=== PATIENT | female | born 1935 | race Caucasian/White ===

== ENCOUNTER 2017-05-09 21:56 | Emergency (ER) | payer MEDICARE ==
[~2017-05-09] VITALS: Ht 165.1 cm; Wt 70.0 kg
[2017-05-09 22:16] VITALS: BP 138/80; PULSE 56; RESP 16; TEMP 98.3; O2SAT 99
--- NOTE | 2017-05-09 22:28 | PD ---
HPI Chief Complaint: Fall Time Seen by Provider: 22:14 Travel History International Travel<30 days: No Contact w/Intl Traveler<30days: No Traveled to known affect area: No History of Present Illness HPI 81-year-old female that presents to the ED for evaluation of fall. Patient had a fall apparently at the nursing facility where she resides. Patient had a fracture to her right hip which is what brought her in the [facility]. She does take Lovenox for DVT prophylaxis. Patient has a chronic history of dementia and is a poor historian herself. She apparently has been complaining of left hip pain. She had a fall from bed. Fall was not witnessed by any of the staff. She does appear to have bruising on the right side of the body which per report from [facility] any back is all from the previous fracture. Unclear patient hit her head. Unclear patient had a syncopal episode. Not much history given again secondary to patient's dementia. She herself cannot really tell me if she has pain or give me a level. PFSH Past Medical History Hx Anticoagulant Therapy: Yes ?: Not Social History Alcohol Use: No Tobacco Use: No Substance Use: No Review of Systems ROS Limitations: Poor Historian Except as stated in HPI: all other systems reviewed are Neg Physical Exam Exam Limitations: Poor Historian Narrative GENERAL: SKIN: Warm and dry. HEAD: Atraumatic. Normocephalic. EYES: Pupils equal and round. No scleral icterus. No injection or drainage. ENT: No nasal bleeding or discharge. Mucous membranes pink and moist. NECK: Trachea midline. No JVD. CARDIOVASCULAR: Regular rate and rhythm. RESPIRATORY: No accessory muscle use. Clear to auscultation. Breath sounds equal bilaterally. GASTROINTESTINAL: Abdomen soft, non-tender, slightly distended. Hepatic and splenic margins not palpable. MUSCULOSKELETAL: Extremities without clubbing, cyanosis, or edema. No obvious deformities. Patient has pain with movement of the left hip. No obvious deformity noted for over. Pupils pulses in the lower extremities. Patient does have bruising and hematoma to the right hip as well as to the right elbow which appear to be old from a previous injury. Patient appears to have no sign of bruising or deformity to the head but she does appear to have blisters or abrasions to the lips of unclear chronicity. No obvious cervical, thoracic, lumbar spine tenderness to palpation but hard to assess secondary to patient's large body habitus. NEUROLOGICAL: Awake and alert and oriented 1. No obvious cranial nerve deficits. Motor grossly within normal limits. Five out of 5 muscle strength in the arms and legs. Normal speech. PSYCHIATRIC: Demented mood and affect; insight and judgment minimal Data Data Last Documented VS Vital Signs Date Time Temp Pulse Resp B/P (MAP) Pulse Ox O2 Delivery O2 Flow Rate FiO2 05/09/17 22:16 98.3 56 16 138/80 (99) 99 Orders Orders Electrocardiogram (05/09/17 22:14) Complete Blood Count With Diff (05/09/17 22:14) Basic Metabolic Panel (Bmp) (05/09/17 22:14) Ckmb (Isoenzyme) Profile (05/09/17 22:14) Troponin I (05/09/17 22:14) Prothrombin Time / Inr (Pt) (05/09/17 22:14) Act Partial Throm Time (Ptt) (05/09/17 22:14) Magnesium (Mg) (05/09/17 22:14) Chest, Single Ap (05/09/17 22:14) Ct Brain W/O Iv Contrast(Rout) (05/09/17 22:14) Ct Abd/Pel W Iv Contrast(Rout) (05/09/17 22:14) Iv Access Insert/Monitor (05/09/17 22:14) Type And Screen (05/09/17 22:14) Elbow, Complete (4 Vws) (05/09/17 22:14) Hip, Uni(Ap&Lat) W Ap Pelvis (05/09/17 22:14) Femur (Ap & Lat/2vws) (05/09/17 ) MDM Medical Decision Making Medical Screen Exam Complete: Yes Emergency Medical Condition: Yes Medical Record Reviewed: Yes Differential Diagnosis Fall versus head injury versus bleed versus fracture versus syncope Narrative Course 81-year-old female that presents to the ED for evaluation of fall from bed. Patient was properly examined and was found to have signs and symptoms concerning for possible fractures. Patient does take Lovenox prophylactically for DVT. She already had a right hip fracture. Unclear as to what happened to the patient has nobody witnessed the fall. Because of the history do recommend imaging. Patient does have somewhat of a distended abdomen but this appears to be more chronic we will do CT of the abdomen is patient does take blood thinners. Patient will have imaging of her head as well as x-rays. Labs were ordered. Case will be signed out to my attending pending disposition. Manish Wilson May 09, 2017 22:28
--- NOTE | 2017-05-09 22:41 | PD ---
Physical Exam Narrative General: The patient is a well-developed well-nourished female in no acute distress. Head and Neck exam: Head is normocephalic atraumatic. Eyes: EOMI, pupils are equal round and reactive to light. Nose: Midline septum with pink mucous membranes Mouth: Dentition unremarkable. Moist mucus membranes. Posterior oropharynx is not erythematous. No tonsillar hypertrophy. Uvula midline. Airway patent. Neck: No palpable lymphadenopathy. No nuchal rigidity. No thyromegaly. Cardiovascular: Regular rate and rhythm without murmurs, gallops, or rubs. No pulse deficit to the extremities on simultaneous auscultation and palpation of her radial artery. Lungs: Clear to auscultation bilaterally. No wheezes, rhonchi, or rales. Abdomen: Soft, without tenderness to palpation in all 4 quadrants of the abdomen. No guarding, rebound, or rigidity. Normal bowel sounds are audible. No tenderness on palpation of McBurney's point. The patient denies having any pain on palpation of her abdomen, however she does have scattered small areas of bruising presumably related to Lovenox administration subcutaneous. Extremities: No clubbing, cyanosis, or edema. 2+ pulses in all 4 extremities. The patient has numerous areas of bruising on her extremities in various stages of healing. The patient reportedly is on aspirin and Lovenox. The patient on examination reports having right hip pain although according to ambulance services she rolled out of bed and landed on her left hip. The patient is postop related to right hip repair. The patient has a postoperative incision that appears to be healing well with surrounding bruising and a hematoma that is formed. The patient has a hematoma/cystic area noted along the right anterior medial thigh that reportedly was present prior to her fall. Back: No costovertebral angle tenderness to palpation. Neurologic Exam: Grossly nonfocal. The patient has a history of dementia. She is oriented to person, however not place, time, or situation. Skin Exam: No rash noted. Skin is warm and dry. Data Data Last Documented VS Vital Signs Date Time Temp Pulse Resp B/P (MAP) Pulse Ox O2 Delivery O2 Flow Rate FiO2 05/09/17 22:16 98.3 56 16 138/80 (99) 99 Orders Orders Electrocardiogram (05/09/17 22:14) Complete Blood Count With Diff (05/09/17 22:14) Basic Metabolic Panel (Bmp) (05/09/17 22:14) Ckmb (Isoenzyme) Profile (05/09/17 22:14) Troponin I (05/09/17 22:14) Prothrombin Time / Inr (Pt) (05/09/17 22:14) Act Partial Throm Time (Ptt) (05/09/17 22:14) Magnesium (Mg) (05/09/17 22:14) Chest, Single Ap (05/09/17 22:14) Ct Brain W/O Iv Contrast(Rout) (05/09/17 22:14) Ct Abd/Pel W Iv Contrast(Rout) (05/09/17 22:14) Iv Access Insert/Monitor (05/09/17 22:14) Type And Screen (05/09/17 22:14) Elbow, Complete (4 Vws) (05/09/17 22:14) Hip, Uni(Ap&Lat) W Ap Pelvis (05/09/17 22:14) Femur (Ap & Lat/2vws) (05/09/17 ) Ct Hip W/O Contrast (05/09/17 ) CKMB (05/09/17 23:05) CKMB% (05/09/17 23:05) Sodium Chlor 0.9% 1000 Ml Inj (Ns 1000 M (05/10/17 01:00) Morphine Inj (Morphine Inj) (05/10/17 01:00) Ondansetron Inj (Zofran Inj) (05/10/17 01:00) Cath For Specimen (05/10/17 00:46) Iodixanol 320 Inj (Rad Ct) (Visipaque 32 (05/10/17 01:00) Urinalysis - C+S If Indicated (05/10/17 01:08) Red Blood Cells (Rbc) (05/09/17 23:05) Urine Culture (05/10/17 01:15) Potassium Chloride (Kcl) (05/10/17 01:45) Ceftriaxone Inj (Rocephin Inj) (05/10/17 01:45) Radiology Film Requests (05/10/17 ) Labs Laboratory Tests Test 05/09/17 23:05 05/10/17 01:15 White Blood Count 12.6 TH/MM3 Red Blood Count 2.78 MIL/MM3 Hemoglobin 9.2 GM/DL Hematocrit 27.8 % Mean Corpuscular Volume 100.3 FL Mean Corpuscular Hemoglobin 33.0 PG Mean Corpuscular Hemoglobin Concent 33.0 % Red Cell Distribution Width 14.9 % Platelet Count 213 TH/MM3 Mean Platelet Volume 8.5 FL Neutrophils (%) (Auto) 79.6 % Lymphocytes (%) (Auto) 9.8 % Monocytes (%) (Auto) 7.4 % Eosinophils (%) (Auto) 2.4 % Basophils (%) (Auto) 0.8 % Neutrophils # (Auto) 10.1 TH/MM3 Lymphocytes # (Auto) 1.2 TH/MM3 Monocytes # (Auto) 0.9 TH/MM3 Eosinophils # (Auto) 0.3 TH/MM3 Basophils # (Auto) 0.1 TH/MM3 CBC Comment AUTO DIFF Differential Total Cells Counted 100 Neutrophils % (Manual) 74 % Band Neutrophils % 3 % Lymphocytes % 14 % Monocytes % 4 % Eosinophils % 2 % Neutrophils # (Manual) 10.1 TH/MM3 Myelocytes 1 % Promyelocytes 2 % Differential Comment FINAL DIFF MANUAL Platelet Estimate NORMAL Platelet Morphology Comment NORMAL Ovalocytes 1+ Acanthocytes OCC Prothrombin Time 10.6 SEC Prothromb Time International Ratio 1.0 RATIO Activated Partial Thromboplast Time 24.9 SEC Blood Urea Nitrogen 30 MG/DL Creatinine 1.47 MG/DL Random Glucose 109 MG/DL Calcium Level 8.6 MG/DL Magnesium Level 1.9 MG/DL Sodium Level 143 MEQ/L Potassium Level 3.4 MEQ/L Chloride Level 107 MEQ/L Carbon Dioxide Level 23.3 MEQ/L Anion Gap 13 MEQ/L Estimat Glomerular Filtration Rate 34 ML/MIN Total Creatine Kinase 153 U/L Creatine Kinase MB 1.4 NG/ML Troponin I LESS THAN 0.02 NG/ML Urine Color YELLOW Urine Turbidity HAZY Urine pH 5.5 Urine Specific [place] 1.014 Urine Protein NEG mg/dL Urine Glucose (UA) NEG mg/dL Urine Ketones NEG mg/dL Urine Occult Blood SMALL Urine Nitrite NEG Urine Bilirubin NEG Urine Urobilinogen LESS THAN 2.0 MG/DL Urine Leukocyte Esterase MOD Urine RBC 3 /hpf Urine WBC 4 /hpf Urine Squamous Epithelial Cells 4 /hpf Urine Bacteria RARE /hpf Urine Hyaline Casts 3 /lpf Urine Mucus FEW /lpf Microscopic Urinalysis Comment CATH-CULTURE IND MDM Medical Record Reviewed: Yes Supervised Visit with SARAH: Yes Interpretation(s) Last Impressions Hip and Pelvis X-Ray 05/09/172213 Signed Impressions: Service Date/Time: Tuesday, May 09, 2017 22:36 - CONCLUSION: Possible nondisplaced fracture of the greater trochanter. Otherwise intact right hip. Normal arthroplasty. Micheal Stubbs MD Elbow X-Ray 05/09/172213 Signed Impressions: Service Date/Time: Tuesday, May 09, 2017 22:30 - CONCLUSION: Intact right elbow. Micheal Stubbs MD Chest X-Ray 05/09/172213 Signed Impressions: Service Date/Time: Tuesday, May 09, 2017 22:46 - CONCLUSION: No evidence of acute cardiopulmonary disease. Micheal Stubbs MD Femur X-Ray 05/09/17 0000 Signed Impressions: Service Date/Time: Tuesday, May 09, 2017 22:39 - CONCLUSION: Normal radiographic appearance of the left femur. Micheal Stubbs MD Differential Diagnosis Hip dislocation, versus fracture, versus pelvis fracture, versus contusion, versus hematoma Narrative Course I, Dr. Webster, have reviewed the advance practice practitioner's documentation and am in agreement, met with the patient face to face, made the diagnosis, and the medical decision making was done by me. The patient was initially evaluated by Jacky, the physician assistant accounting manager. Please see their complete history and physical. *My assessment and Findings: The patient presents with a reported history of falling out of bed prior to arrival. The patient is currently in a rehabilitation facility status post right hip ORIF. The patient reportedly rolled out of bed and landed on her left side and was complaining of left hip pain. The patient on examination by me is awake and alert. She is oriented to person. She reports that she has right hip pain. During the course of the patients emergency department visit, the patients history, examination, and differential diagnosis were reviewed with the patient. The patient was placed on a cardiac rehab nurse with oximetry and frequent blood pressure monitoring. The patient had IV access obtained and blood work sent for analysis. The patient had an ECG done that shows what appears to be atrial flutter with a heart rate of 56, QRS duration is 95 ms, QTC [address] segment elevation. The patient was initially provided morphine 2 mg IV for pain, Zofran 4 mg IV for nausea. The patient was noted on urinalysis to have evidence of a urinary tract infection and was given Rocephin 1 g IV. The patient had mild hypokalemia and was given potassium 20 mg by mouth 1. The patients laboratory studies were reviewed and remarkable for a CBC that is 12.6, hemoglobin 9.2, platelets 213 with 74 neutrophils. Basic metabolic profile is remarkable for potassium of 3.4, BUN 30, creatinine 1.47, glucose 109 , magnesium 1.9, CPK 153, troponin I less than 0.02. PT 10.6, PTT 24.9. Urinalysis shows small occult blood, moderate leukocyte esterase, 3 RBCs, 4 WBCs , 4 squamous epithelial cells, rare bacteria, culture indicated. Radiology studies were reviewed and remarkable for a chest x-ray that shows no evidence of acute cardiopulmonary disease, right hip and pelvis x-ray reveal a possible nondisplaced fracture of the greater trochanter, otherwise intact right hip, normal arthroplasty. Left femur x-ray shows no acute abnormality. Right elbow x-ray shows an intact right elbow. CT scan of the head shows no acute abnormality. CT scan of the abdomen and pelvis shows bilateral small pleural effusions, no acute visceral injury. Suspected right hip fracture. CT scan of the right hip reveals a mildly comminuted mildly displaced acute appearing fracture of the right greater trochanter. There is a nondisplaced intertrochanteric component along the anterior margin of the proximal stem of the femoral component of the right hip arthroplasty. No evidence of hardware failure or loosening. The patient has an extra-articular soft tissue hematoma, old healed fractures of the right superior and inferior pubic rami. No acute pelvic fractures. A call was placed out to , the orthopedic physician, regarding this patient's case and the image findings noted on CT. I was told by the [facility] that he is the orthopedic physician that did the patient's right hip surgery on May 02. Dr. Bradshaw, the covering orthopedic physician called me back, and I spoke to him at 2:42 AM regarding this patient's case. We discussed the patient's current findings including her CT scan of the right hip findings. He reports that the patient may require admission for this. He is concerned that the fracture may affect the stability of the hardware that was recently placed. He plans to call Dr. Villalba to identify whether he would accept the patient in transfer to that facility, or whether the patient should be admitted to this facility. He returned the phone call back again at approximately 3:25 AM. He reports that the patient is accepted for transfer, however he wants us to make sure that the family agrees with the transfer to their facility. We will call the patient's family to notify them and obtain a consent. The CD of the images will also be made of the images of the patient has obtained at this facility for the orthopedic doctor to review at that facility. Additionally, gave me the nursing roofing supervisor's phone number for a report at [facility] at [phone] (Margie). I spoke to Margie who reported that the orthopedic physician is unable to provide admission orders in from home, therefore this would have to be an ER to ER transfer. I then spoke to the transfer center at [facility]. They transferred me to the emergency department physician, , agreed to the transfer of the patient from ER to ER. The patient's family was able to be contacted at 4:45 AM. I did speak to Sarabjit Lino, the patient's healthcare surrogate. He was aware of the patient's recent surgery. He agreed with the patient being transferred over to [facility] for continued care at their facility under the care of the surgeon that previously did her surgery on May 02. The patient will be transferred by ambulance services to [facility]. Diagnosis Primary Impression: Greater trochanter fracture Qualified Codes: S72.111A - Displaced fracture of greater trochanter of right femur, initial encounter for closed fracture Additional Impressions: Intertrochanteric fracture of right femur Qualified Codes: S72.144A - Nondisplaced intertrochanteric fracture of right femur, initial encounter for closed fracture Urinary tract infection Qualified Codes: N39.0 - Urinary tract infection, site not specified; R31.9 - Hematuria, unspecified Leukocytosis Qualified Codes: D72.829 - Elevated white blood cell count, unspecified Med/Other Pt SpecificInfo: Prescription(s) given Scripts Sulfamethoxazole-Trimethoprim (Bactrim DS) 800-160 Mg Tab 1 TAB PO BID for Infection, #14 TAB 0 Refills Prov: Jada Webster MD 05/10/17 Disposition: 70 TRANSFER TO OTHER FACILITY Condition: Stable Jada Webster MD May 09, 2017 22:41
--- NOTE | 2017-05-09 23:07 | RADRPT ---
EXAM DATE/TIME: 05/09/2017 22:30 [facility] COMPARISON: No previous studies available for comparison. INDICATIONS : Fall today. MEDICAL HISTORY : Patient was nonverbal. SURGICAL HISTORY : Patient was nonverbal. ENCOUNTER: Initial ACUITY: 1 day PAIN SCORE: 7/10 LOCATION: Right elbow. FINDINGS: Multiple view examination of the right elbow demonstrates no soft tissue swelling, joint effusion, or fracture. The osseous structures are in normal alignment. Bony mineralization is normal. CONCLUSION: Intact right elbow. Micheal Stubbs MD on May 09, 2017 at 23:06 Board Certified Radiologist. This report was verified electronically.
--- NOTE | 2017-05-09 23:08 | RADRPT ---
EXAM DATE/TIME: 05/09/2017 22:39 [facility] COMPARISON: No previous studies available for comparison. INDICATIONS : Pain. MEDICAL HISTORY : Patient non verbal. SURGICAL HISTORY : Patient non verbal. ENCOUNTER: Initial ACUITY: 1 day PAIN SCORE: Non-responsive. LOCATION: Left Femur. FINDINGS: Two view examination of the left femur demonstrates no evidence of fracture or dislocation. Bony min eralization is normal. The soft tissue structures are intact. CONCLUSION: Normal radiographic appearance of the left femur. Micheal Stubbs MD on May 09, 2017 at 23:06 Board Certified Radiologist. This report was verified electronically.
--- NOTE | 2017-05-09 23:17 | RADRPT ---
EXAM DATE/TIME: 05/09/2017 22:46 [facility] COMPARISON: No previous studies available for comparison. INDICATIONS : Trauma. MEDICAL HISTORY : Patient non verbal. SURGICAL HISTORY : Patient non verbal. ENCOUNTER: Initial ACUITY: 1 day PAIN SCORE: Non-responsive. LOCATION: Bilateral Chest. FINDINGS: A single view of the chest demonstrates the lungs to be symmetrically aerated without evidence of mas s, infiltrate or effusion. The cardiomediastinal contours are unremarkable. Osseous structures are intact. CONCLUSION: No evidence of acute cardiopulmonary disease. Micheal Stubbs MD on May 09, 2017 at 23:15 Board Certified Radiologist. This report was verified electronically.
--- NOTE | 2017-05-09 23:19 | RADRPT ---
EXAM DATE/TIME: 05/09/2017 22:36 [facility] COMPARISON: No previous studies available for comparison. INDICATIONS : Fall today. MEDICAL HISTORY : Nonverbal. SURGICAL HISTORY : Nonverbal. ENCOUNTER: Initial ACUITY: 1 day PAIN SCORE: 7/10 LOCATION: Right hip. FINDINGS: Patient has a right bipolar hip arthroplasty. The arthroplasty is intact but there is some patchy jina ency in the adjacent greater trochanter of the proximal right femur. No evidence of hardware loosenin g. The right hemipelvis is intact. CONCLUSION: Possible nondisplaced fracture of the greater trochanter. Otherwise intact right hip. Normal arthropl asty. Micheal Stubbs MD on May 09, 2017 at 23:16 Board Certified Radiologist. This report was verified electronically.
[2017-05-09 23:37] LABS: AUTOMATED NEUTROPHIL # 10.1 TH/MM3 (1.8-7.7); BASOPHIL # 0.1 TH/MM3 (0-0.2); BASOPHIL % 0.8 % (0.0-2.0); EOSINOPHIL # 0.3 TH/MM3 (0-0.4); EOSINOPHIL % 2.4 % (0.0-4.0); HEMATOCRIT 27.8 % (35.0-46.0); HEMOGLOBIN 9.2 GM/DL (11.6-15.3); LYMPH % 9.8 % (9.0-44.0); LYMPHOCYTE # 1.2 TH/MM3 (1.0-4.8); MEAN CELL VOLUME 100.3 FL (80.0-100.0); MEAN PLATELET VOLUME 8.5 FL (7.0-11.0); MONO % 7.4 % (0.0-8.0); MONOCYTE # 0.9 TH/MM3 (0-0.9); NEUT % 79.6 % (16.0-70.0); PLATELET COUNT 213 TH/MM3 (150-450); RED BLOOD COUNT 2.78 MIL/MM3 (4.00-5.30); RED CELL DISTRIBUTION WIDTH 14.9 % (11.6-17.2); WHITE BLOOD COUNT 12.6 TH/MM3 (4.0-11.0)
[2017-05-09 23:48] LABS: PROTHROMBIN TIME - PATIENT 10.6 SEC (9.8-11.6)
[2017-05-09 23:51] LABS: BICARBONATE 23.3 MEQ/L (21.0-32.0); BLOOD UREA NITROGEN 30 MG/DL (7-18); CALCIUM 8.6 MG/DL (8.5-10.1); CHLORIDE 107 MEQ/L (98-107); CREATININE 1.47 MG/DL (0.50-1.00); GLOMERULAR FILTRATION RATE 34 ML/MIN (>89); GLUCOSE,RANDOM 109 MG/DL (74-106); MAGNESIUM 1.9 MG/DL (1.5-2.5); SODIUM (NA) 143 MEQ/L (136-145)
[2017-05-09 23:56] LABS: TROPONIN I LESS THAN 0.02 NG/ML (0.02-0.05)
--- NOTE | 2017-05-10 00:59 | RADRPT ---
EXAM DATE/TIME: 05/10/2017 00:45 [facility] COMPARISON: No previous studies available for comparison. INDICATIONS : Trauma, fall. RADIATION DOSE: 61.09 CTDIvol (mGy) MEDICAL HISTORY : None SURGICAL HISTORY : None. ENCOUNTER: Initial ACUITY: 1 day PAIN SCALE: Non-responsive LOCATION: cranial TECHNIQUE: Multiple contiguous axial images were obtained of the head. Using automated exposure control and adj ustment of the mA and/or kV according to patient size, radiation dose was kept as low as reasonably a chievable to obtain optimal diagnostic quality images. DICOM format image data is available electro nically for review and comparison. FINDINGS: CEREBRUM: The ventricles are normal for age. No evidence of midline shift, mass lesion, hemorrhage or acute in farction. No extra-axial fluid collections are seen. POSTERIOR FOSSA: The cerebellum and brainstem are intact. The 4th ventricle is midline. The cerebellopontine angle i s unremarkable. EXTRACRANIAL: The visualized portion of the orbits is intact. SKULL: The calvaria is intact. No evidence of skull fracture. CONCLUSION: Negative noncontrast head CT. Micheal Stubbs MD on May 10, 2017 at 0:57 Board Certified Radiologist. This report was verified electronically.
[2017-05-10] MEDS ORDERED: ONDANSETRON HCL 4 MG/2 ML VIAL IV PUSH ONE (01:00)
[2017-05-10] MEDS ORDERED: SODIUM CHLOR 0.9% 1000 ML INJ 1,000 ML IV SCH (01:00)
[2017-05-10] MEDS ORDERED: IODIXANOL 320 MG/ML 10 ML VIAL (for Rad CT) IVCONTRAST ONE (01:00)
[2017-05-10] MEDS ORDERED: MORPHINE SULFATE 2 MG/ML INJ IV PUSH ONE (01:00)
--- NOTE | 2017-05-10 01:12 | RADRPT ---
EXAM DATE/TIME: 05/10/2017 00:48 [facility] COMPARISON: No previous studies available for comparison. INDICATIONS : Trauma, fall. IV CONTRAST: 75 cc Visipaque (iodixanol) IV ORAL CONTRAST: No oral contrast ingested. RADIATION DOSE: 14.77 CTDIvol (mGy) MEDICAL HISTORY : None SURGICAL HISTORY : None. ENCOUNTER: Initial ACUITY: 1 day PAIN SCALE: Non-responsive LOCATION: Bilateral abdomen TECHNIQUE: Volumetric scanning of the abdomen and pelvis was performed. Using automated exposure control and ad justment of the mA and/or kV according to patient size, radiation dose was kept as low as reasonably achievable to obtain optimal diagnostic quality images. DICOM format image data is available electro nically for review and comparison. FINDINGS: LOWER LUNGS: Small bilateral pleural effusions. LIVER: Homogeneous density without lesion. There is no dilation of the biliary tree. No calcified gallston es. SPLEEN: Normal size without lesion. PANCREAS: Within normal limits. KIDNEYS: Normal in size and shape. There is no mass, stone or hydronephrosis. ADRENAL GLANDS: Within normal limits. VASCULAR: There is no aortic aneurysm. BOWEL/MESENTERY: The stomach, small bowel, and colon demonstrate no acute abnormality. There is no free intraperitone al air or fluid. ABDOMINAL WALL: Within normal limits. RETROPERITONEUM: There is no lymphadenopathy. BLADDER: Considerably distended at the time of imaging. A few bubbles of anti--dependent gas present as well, presumably attempted catheter placement. Please correlate clinically. REPRODUCTIVE: Within normal limits. INGUINAL: There is no lymphadenopathy or hernia. MUSCULOSKELETAL: Suspected fracture the right greater trochanter and a CT of the right hip is pending. Otherwise visua lized osseous structures are intact. There is a circumscribed mass measuring 3.2 x 4.7 x 4.6 cm in si ze just beneath the skin of the right inguinal region, nonspecific but most likely epidermal inclusio n cyst. Please correlate clinically. CONCLUSION: 1. No visceral organ injury or other acute abnormality within the abdomen or pelvis. 2. Small, bilateral pleural effusions seen of the visualized lung bases. 3. Distended urinary bladder. 4. Subcutaneous mass of the right inguinal region, probably a benign epidermal inclusion cyst. 5. Suspected right greater trochanteric fracture and a right hip CT is pending. Other visualized osse ous structures are intact. Micheal Stubbs MD on May 10, 2017 at 1:07 Board Certified Radiologist. This report was verified electronically.
--- NOTE | 2017-05-10 01:19 | RADRPT ---
EXAM DATE/TIME: 05/10/2017 00:48 [place] COMPARISON: No previous studies available for comparison. INDICATIONS : Trauma, fall. Evaluate for fracture. RADIATION DOSE: ; Reconstructed from previous dataset, no dose MEDICAL HISTORY : None SURGICAL HISTORY : None. ENCOUNTER: Initial ACUITY: 1 day PAIN SCALE: Non-responsive LOCATION: Right pelvis TECHNIQUE: Volumetric scanning of the hip was performed. Using automated exposure control and adjustment of the mA and/or kV according to patient size, radiation dose was kept as low as reasonably achievable to o btain optimal diagnostic quality images. DICOM format image data is available electronically for rev iew and comparison. FINDINGS: Multiple small, mildly displaced fractures are seen posteriorly of the right greater trochanter. Ther e is associated adjacent soft tissue hematoma. I don't see a definite joint effusion. The patient has a right bipolar hip arthroplasty. There is a focal intertrochanteric component of fracture involving the anterior cortex along the anterior margin of the upper stem of the femoral component, for exampl e series 7 image 40 and series 800 image 19. This component of the fracture is nondisplaced. The hard slater is intact and normally aligned. No evidence of loosening. There are old, healed fractures of the right superior and inferior pubic rami. 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 CONCLUSION: 1. Mildly comminuted, mildly displaced acute appearing fracture of the right greater trochanter. Ther e is a nondisplaced intertrochanteric component along the anterior margin of the proximal stem of the femoral component of the right hip arthroplasty. No evidence of hardware failure or loosening. 2. Extra-articular soft tissue hematoma posterolateral to the right hip. 3. No subluxation. 4. Old, healed fractures of the right superior and inferior pubic rami. No acute pelvic fracture is d emonstrated. Micheal Stubbs MD on May 10, 2017 at 1:12 Board Certified Radiologist. This report was verified electronically.
[2017-05-10 01:35] LABS: BACTERIA, URINE RARE /hpf; BILIRUBIN, URINE NEG (NEG); BLOOD, URINE SMALL (NEG); GLUCOSE,URINE NEG (NEG); HYALINE CAST, URINE 3 /lpf (RARE); KETONE, URINE NEG (NEG); MUCUS URINE FEW /lpf (OCC); NITRITE,URINE NEG (NEG); PH, URINE 5.5 (5.0-8.5); SQUAMOUS EPITHELIAL CELL URINE 4 /hpf (0-5); URINE COLOR YELLOW (YELLW/STRAW); URINE LEUKOCYTE ESTERASE MOD (NEG)
[2017-05-10] MEDS ORDERED: cefTRIAXone INJ 1,000 MG in SODIUM CHLORIDE 0.9% INJ 100 ML IV ONE (01:45)
[2017-05-10] MEDS ORDERED: BACT800T5 PO (01:45)
[2017-05-10] MEDS ORDERED: POTASSIUM CHLORIDE 20 MEQ CONTROLLED RELEASE TAB PO ONE (01:45)
[2017-05-10 02:15] LABS: BANDS 3 % (0-6); LYMPHOCYTES 14 % (9-44); MONOCYTES 4 % (0-8); MYELOCYTES 1 % (0-0); NEUTROPHIL # MANUAL DIFF 10.1 TH/MM3 (1.8-7.7); POLYS (SEG NEUTROPHILS) 74 % (16-70); PROMYELOCYTES 2 % (0-0)
[2017-05-10 02:16] LABS: OVALOCYTES 1+ (NORMAL)
[2017-05-10 02:17] LABS: ACANTHOCYTES OCC (NORMAL)
--- NOTE | 2017-05-10 13:04 | EKG ---
Date Performed: 05/09/2017 Time Performed: 23:26:17 PTAGE: 81 years EKG: ATRIAL FLUTTER WITH SLOW VENTRICULAR RESPONSE LOW QRS VOLTAGE IN PRECORDIAL LEADS ABNORMAL RHYTHM ECG NO PREVIOUS TRACING DOCTOR: Sammy Alas Interpretating Date/Time 05/10/2017 13:02:30
== END 2017-05-10 06:35 | disposition short-term general hospital (02) ==
LOC: NEPE 21:56 → EDBD 21:56 → NEPE 05-10 06:35
DX: S72.111A Displaced fracture of greater trochanter of right femur, initial encounter for closed fracture (principal); S72.144A Nondisplaced intertrochanteric fracture of right femur, initial encounter for closed fracture; M97.01XA Periprosthetic fracture around internal prosthetic right hip joint, initial encounter; N39.0 Urinary tract infection, site not specified; R31.9 Hematuria, unspecified; I48.92 Unspecified atrial flutter; W06.XXXA Fall from bed, initial encounter; Y92.129 Unspecified place in nursing home as the place of occurrence of the external cause
CPT/HCPCS: 70450; 71010; 73080; 73502; 73552; 73700; 74177; 80048; 81001; 82550; 82552; 83735; 84484; 85007; 85027; 85610; 85730; 86077; 86850; 86870; 86900; 86901; 86920; 86922; 87086; 93005; 96361; 96365; 96366; 96375; 99285; J0696; J2270; J2405; J7030; P9612; Q9967